=== PATIENT | male | born 1985 | race Caucasian/White ===

== ENCOUNTER 2024-05-16 09:55 | Emergency (ER) | payer OTHER, SELFPAY ==
[2024-05-16 09:57] VITALS: BP 140/85
--- NOTE | 2024-05-16 10:06 | ED.GENMED ---
History of Present Illness
General
Chief Complaint: Musculo-Skeletal Complaint
Source: patient
Time Seen by Provider: 05/16/24 10:01
History of Present Illness
History of Present Illness:
38yoM with a remote history of atrial fibrillation on aspirin and ADHD presenting for evaluation of right foot pain. [place] horseshoe crab 3 days ago. He looked back and noticed that the tail of
the horseshoe crab was broken. He is unsure if he has a piece of the tail stuck in his foot. He has been having pain in his heel since the incident and is having difficulty with ambulation. Unknown last Tdap.
Past History
Past History
ED Past Medical History: Arrthythmia (Atrial fib) and Other (COVID 2020)
ED Past Surgical History: Other (inguinal hernia repair)
Social History
Tobacco: Former smoker
Alcohol: Occasional
Personal:
Living: with family
Employment: Employed
Phy Exam
General Physical Exam
General Presentation: well appearing and no apparent distress
General age: appears stated age
General Skin: warm and dry
General Habitus: normal
Musculoskeletal Exam
Musculoskeletal Exam: other (R foot: Puncture wound noted to heel. +Tenderness and mild swelling near puncture site. No palpable FB. No drainage, erythema, warmth. 2+ DP pulse and sensation intact. )
Psychiatric Exam
Psychiatric Exam: normal mood/affect
Course
Orders/Labs/Results
Orders:
Orders
05/16/24 10:05
Tetanus/Diphth/Acelpertussis [Adacel] 0.5 ml IM .ONCE ONE
CR Foot - Right Min 3 Views Urgent
Comment:
Reason For Exam: Possible foreign body in heel
05/16/24 10:49
Crutches-Treatment ONCE
Vital Signs
Initial and Last Documented VS:
Initial Vital Signs
Temp Pulse Resp BP Pulse Ox
98.2 F 82 16 140/85 98
05/16/24 09:57 05/16/24 09:57 05/16/24 09:57 05/16/24 09:57 05/16/24 09:57
Last Documented Vital Signs
Temp Pulse Resp BP Pulse Ox
98.2 F 82 16 140/85 98
05/16/24 09:57 05/16/24 09:57 05/16/24 09:57 05/16/24 09:57 05/16/24 09:57
MDM/Problems Addressed
Differential Diagnosis Includes:
38yoM here with R foot pain after stepping on a horseshoe crab 3 days ago. Puncture wound noted on exam with tenderness. No palpable foreign body. RLE is neurovascularly intact. Differential diagnosis includes but is not limited to: retained foreign
body, puncture wound, no clinical signs of infection
X-rays obtained which show two possible FB vs. artifact. Case discussed with steel detailer, Dr. Ingram, who is able to see patient tomorrow in the office. Tdap updated and he was started on a course of Keflex. Crutches given and he was advised to
not bear weight until seen by podiatry. Patient discharged in stable condition.
*Critical Care Note
Total Time (30-74mins, 75-104mins- exclusive of procedures): Not Applicable
ED Attending Note
-
Portions of this chart may have been created with voice recognition software.� Occasional wrong word or��sound alike� substitutions may have occurred due to the inherent limitations of voice recognition software.
Discharge Plan
Departure
Patient Disposition: Home (Routine Discharge)
Date of Disposition: 05/16/24
Time of Disposition: 11:28
Patient with high blood pressure during this ER visit?: Yes
Discharge Problem:
Foreign body in right foot
Instructions: Foreign Body in Skin (DC)
Prescriptions:
New
cephalexin 500 mg capsule
500 mg PO Q6H 7 Days Qty: 28 0RF
No Action
.[place]-3
1 tab PO DAILY
Teresita
1 tab PO DAILY
multivitamin 1 EACH tablet
1 ea PO DAILY
dextroamphetamine-amphetamine [Adderall] 30 MG tablet
30 mg PO DAILY
rivaroxaban [Xarelto DVT-PE Treat 30d Start] 1 EACH tablets,dose pack
1 tab PO DIRECTED Qty: 1 0RF
Rx Instructions:
15 mg oral twice per day x 3 weeks then
20 mg oral daily beginning week 4
Referrals:
Tremayne Vidales MD [Family Provider] -
Charlie Ingram DPM [Specified Professional Personl] -
Activity Restrictions/Additional Instructions:
Take antibiotics as prescribed. Apply ice to affected area. Use crutches and do not bear weight until seen by podiatry.
Please call [facility] to schedule a follow-up appointment. Phone number is [phone].
Interventions
Interventions:
ED- Fall Risk Assessment Last Done: 05/16/24 10:30
*Nursing Disposition Last Done: 05/16/24 11:40
ED-Musculoskeletal Assessment Last Done: 05/16/24 10:30
Discharge Date and Time
Discharge Date/Time: 05/16/24 11:40
Print Language: BULGARIAN
[2024-05-16] MEDS: ADACEL 0.5 ML IM (10:27)
== END 2024-05-16 11:40 | disposition home or self-care (01) ==
LOC: EMR 09:55
PROVIDERS: EMERGENCY PHYSICIAN Emergency Medicine; FAMILY PHYSICIAN Internal Medicine
DX: S90.851A Superficial foreign body, right foot, initial encounter (principal); S91.331A Puncture wound without foreign body, right foot, initial encounter; W26.8XXA Contact with other sharp object(s), not elsewhere classified, initial encounter; Z23 Encounter for immunization; I48.91 Unspecified atrial fibrillation; F90.9 Attention-deficit hyperactivity disorder, unspecified type; Z86.16 Personal history of COVID-19; Z87.891 Personal history of nicotine dependence; Z79.82 Long term (current) use of aspirin
CPT/HCPCS: 99283; 90471; 73630; 90715

== ENCOUNTER → 2024-05-19 14:58 | Outpatient (REF) | payer OTHER, SELFPAY | LOC: RAD 14:58 | PROVIDERS: ATTENDING PHYSICIAN Podiatrist Foot & Ankle Surgery; FAMILY PHYSICIAN Internal Medicine | DX: S90.859A Superficial foreign body, unspecified foot, initial encounter (principal) | CPT/HCPCS: 76882 ==

== ENCOUNTER 2024-05-24 10:14 | Day surgery (SDC) | payer OTHER, SELFPAY ==
--- NOTE | 2024-05-23 13:14 | HP.FOC2 ---
Focused History & Physical
Chief Complaint
HPI:
Chief Complaint: Right heel foreign body
HPI / Indication for Planned Procedure:
38 yo health young male seen in the office on 05/18/2024 with h/o stepping on horse shoe crab spikes on 05/13/2024, he was seen in ER on 05/16 and had Rt heel Xrays showing 2 small linear spikes which were not visible with naked eye, he was sent home
with Po Abx and follow up with podiatry. He has minimal pain in Rt heel, no fever, chills.
in the clinic failed to remove any Fb , so planned for intra op exploration
His out pt Rt heel ultrasound showed again same linear Fb spikes
Relevant Past Medical History: Negative and Other (Hernia, Hemorrhoids )
Relevant Social History: Negative
Relevant Family History: Negative
Relevant Past Surgical History: Negative
Review of Systems
Review of Pertinent Systems: All Systems Negative Except for the Following Positives (Right heel small area of abscess/superficial cystic area withdried scab medial heel, no local erythema or any draiange, presence of tenderness on palpation noted,
no red streaking up the leg, no signs of any deep abscess or crepitus felt )
Medication
See Medication form for detailed medications: Yes
Medication List (including Herbals & OTC):
dextroamphetamine-amphetamine 30 mg tablet (Adderall) 30 mg PO DAILY 03/31/21
cephalexin 500 mg capsule 500 mg PO Q6H 7 days #28 caps 05/16/24
Beef Liver 500 mg PO DAILY 05/20/24
[place] 3 1,400 mg PO DAILY 05/20/24
[place] Protein 1 cap PO DAILY 05/20/24
apple cider vinegar 1 gummy PO DAILY 05/20/24
aspirin 81 mg tablet,delayed release 81 mg PO DAILY 05/20/24
biotin 10,000 mcg capsule 10,000 mcg PO DAILY 05/20/24
cholecalciferol (vitamin D3) 50 mcg (2,000 unit) capsule (Vitamin D3) 50 mcg PO DAILY 05/20/24
coQ10 (ubiquinol) 200 mg capsule 200 mg PO DAILY 05/20/24
ibuprofen 200 mg tablet 400 mg PO Q6H PRN pain 05/20/24
Medications Reviewed: Yes
Allergies and Reactions
Patient has Allergies: No
Noted Allergies and Reactions:
Allergy/AdvReac Type Severity Reaction Status Date / Time
No Known Allergies Allergy Verified 05/20/24 15:23
Pertinent Physical Exam
All Other Systems: Negative
Head/Neck: Normal
Lungs: Normal
Heart: Normal
Abdomen: Normal
Extremities: Normal
Neurological: Normal
Diagnosis / Assessment
Right heel foreign body
Plan / Procedure
Surgical exploration of Right heel for any FB
Anesthesia/Sedation to be done by Anesthesia Provider: Yes
[2024-05-24 10:08] VITALS: BMI 25.0
[2024-05-24 10:26] VITALS: BP 128/85; BMI 25.0
[2024-05-24] MEDS: NORMOSOL-R/PLASMALYTE-A 1000 IV (10:35)
[2024-05-24 10:39] LABS: Hematocrit 39.3 % (39.0-52.0); Hemoglobin 14.1 g/dL (13.0-18.0); Mean Corp Hgb Conc. 35.9 g/dL (33.0-37.0); Mean Corpuscular Hgb 30.1 pg (27.0-31.0); Mean Platelet Volume 8.4 fL (7.4-10.4); Platelet Count 225 10^3/uL (130-400); Red Blood Cell Count 4.68 10^6/uL (4.70-6.10); Red Cell Dist. Width 12.3 % (11.5-14.5); White Blood Cell Count 4.1 10^3/uL (4.8-10.8)
[2024-05-24 11:12] LABS: Blood Urea Nitrogen 25 mg/dl (9-20); Calcium 9.2 mg/dl (8.4-10.2); Carbon Dioxide 31 mmol/L (22-30); Chloride 101 mmol/L (98-107); Estimated Creatinine Clearance > 125 ml/min; Glucose 81 mg/dl (70-99); Potassium 4.1 mmol/L (3.5-5.1); Sodium 140 mmol/L (135-145); eGFR > 60.00
[2024-05-24 11:24] VITALS: BP 104/46
--- NOTE | 2024-05-24 11:25 | W.SUR.POST ---
Surgical Immediate Post Op
Note
Pre Op Diagnosis: Right heel foreign boy
Post Op Diagnosis: Same as above
Procedure Performed: Rt heel foreign body removal
Primary Surgeon: Dr. Ingram
Secondary Surgeons: none
Anesthesia: Mac with local block
Estimated Blood Loss: 1 cc
Fluids: None
Drains/Shunts: None
Specimens/Cultures: Rt heel forign body sent for pathology
Doppler/Duplex/Angio (Y/N):N
Complications: None
Operative Findings: Removed foreign body from Rt heel , no deep tissue purulence or any signs of infection , stable vitals and intact vascular status rt foot
[2024-05-24 11:30] VITALS: BP 115/66
[2024-05-24 11:45] VITALS: BP 101/65
[2024-05-24 12:00] VITALS: BP 110/89
[2024-05-24 12:08] VITALS: BP 108/68
== END 2024-05-24 12:22 | disposition home or self-care (01) ==
LOC: SDS 10:14
PROVIDERS: ATTENDING PHYSICIAN Podiatrist Foot & Ankle Surgery
DX: S91.341A Puncture wound with foreign body, right foot, initial encounter (principal); X58.XXXA Exposure to other specified factors, initial encounter
CPT/HCPCS: 28190; 88300; 73620; 80048; 85027